=== PATIENT | female | born 1975 | race Caucasian/White ===

== ENCOUNTER 2017-08-21 09:22 | Day surgery (SDC) | payer OTHER ==
[~2017-08-21] VITALS: Ht 167.6 cm; Wt 90.7 kg
[~2017-08-21 09:22] MED LIST: INHALER; TUMS500 MG PO
[2017-08-21 09:45] VITALS: BP 124/68
[2017-08-21 10:27] LABS: HEMATOCRIT 42.8 % (36.0-46.0); MCH 30.8 PG (29.0-34.0); MCHC 33.4 G/DL (30.0-36.0); MCV 92.2 FL (83-99); MEAN PLAT.VOLUME 10.3 uM^3 (9.5-12.4); PLATELET COUNT 300 K/uL (156-360); RBC DIS.WIDTH-CV 13.2 % (11.8-14.6); RBC DIS.WIDTH-SD 44.1 % (39-53); RED BLOOD COUNT 4.64 M/uL (3.80-5.20); WHITE BLOOD COUNT 7.5 K/uL (4.1-10.2)
[2017-08-21 10:29] LABS: ANION GAP 8 MEQ/L (2-14); CHLORIDE 108 MEQ/L (99-109); GFR ESTIMATE (CALCULATED) > 59 mL/min/; GLUCOSE 87 mg/dL (70-99); POTASSIUM 4.3 MEQ/L (3.7-5.4); SAMPLE HEMOLYSIS CHECK 0; SAMPLE ICTERIC CHECK 0; SAMPLE LIPEMIA CHECK 0; SODIUM 142 MEQ/L (136-147); UREA NITROGEN (BUN) 11 mg/dL (9-23)
[2017-08-21] MEDS ORDERED: NORCO 5/3251 TABLET PO (13:41)
[2017-08-21 14:29] VITALS: BP 132/70
[2017-08-21 15:25] VITALS: BP 120/64
[2017-08-21 16:01] VITALS: BP 128/66
[2017-08-22 09:44] LABS: INTERNAL CONTROL VALID? YES
== END 2017-08-21 16:10 | disposition home or self-care (01) ==
LOC: SDC 09:22
PROVIDERS: Surgery
DX: K80.10 Calculus of gallbladder with chronic cholecystitis without obstruction (principal); E66.9 Obesity, unspecified; Z68.32 Body mass index [BMI] 32.0-32.9, adult; J45.909 Unspecified asthma, uncomplicated; E03.9 Hypothyroidism, unspecified
CPT/HCPCS: 74300; 80048; 84703; 85027; 88304; J0131; J1100; J1170; J1885; J2250; J2405; J2710; J3010; Q0175; S0020; S0074

== ENCOUNTER 2017-12-11 11:48 | Observation (INO) | payer OTHER ==
[~2017-12-11] VITALS: Ht 167.6 cm; Wt 92.6 kg
[~2017-12-11 11:48] MED LIST changes: +NORCO 5/3251 TABLET PO
[2017-12-11 12:06] LABS: BASOPHIL (%) 0.4 % (0-1); EOSINOPHIL (%) 0.9 % (0-5); EOSINOPHIL COUNT 0.1 K/uL (0-0.3); HEMATOCRIT 39.4 % (36.0-46.0); HEMOGLOBIN 13.4 G/DL (11.9-15.5); IMMATURE GRANULOCYTE (%) 0.3 % (0.0-0.7); LYMPHOCYTE (%) 22.5 % (15-42); LYMPHOCYTE COUNT 2.3 K/uL (1.0-2.8); MCH 30.2 PG (29.0-34.0); MCV 88.7 FL (83-99); MONOCYTE (%) 5.1 % (3-12); MONOCYTE COUNT 0.5 K/uL (0-0.8); NEUTROPHIL (%) 70.8 % (45-76); NEUTROPHIL COUNT 7.1 K/uL (1.8-6.4); PLATELET COUNT 266 K/uL (156-360); RBC DIS.WIDTH-CV 12.9 % (11.8-14.6); RBC DIS.WIDTH-SD 42.5 % (39-53); RED BLOOD COUNT 4.44 M/uL (3.80-5.20)
[2017-12-11 12:14] LABS: AMYLASE 35 IU/L (1-118); CHLORIDE 109 mEq/L (99-109); POTASSIUM 3.7 mEq/L (3.7-5.4); SODIUM 141 mEq/L (136-147)
[2017-12-11 12:16] LABS: GLUCOSE 108 mg/dL (70-99)
[2017-12-11 12:19] LABS: SERUM ETHYL ALCOHOL < 10 mg/dL
[2017-12-11 12:20] LABS: CREATININE 0.7 mg/dL (0.6-1.3); GFR ESTIMATE (CALCULATED) > 59 mL/min/
[2017-12-11 12:21] LABS: UREA NITROGEN (BUN) 11 mg/dL (9-23)
[2017-12-11 12:23] LABS: LIPASE 15 U/L (1.0-51.0)
[2017-12-11 12:28] LABS: QUANTITATIVE HCG < 4.0 MIU/ML
[2017-12-11] MEDS ORDERED: TYLENOL WITH C1 EACH PO (13:44)
[2017-12-11 18:09] LABS: HEMOGLOBIN 12.3 G/DL (11.9-15.5); MCH 31.1 PG (29.0-34.0); MCHC 35.1 G/DL (30.0-36.0); MCV 88.6 FL (83-99); PLATELET COUNT 219 K/uL (156-360); RBC DIS.WIDTH-CV 12.8 % (11.8-14.6); RBC DIS.WIDTH-SD 41.8 % (39-53); RED BLOOD COUNT 3.95 M/uL (3.80-5.20); WHITE BLOOD COUNT 13.4 K/uL (4.1-10.2)
[2017-12-11] MEDS ORDERED: ZOFRAN ODT4 MG PO (18:40)
[2017-12-11 23:38] VITALS: BP 133/64
[2017-12-11 23:45] VITALS: BP 133/64
[2017-12-12] VITALS (7 sets, daily range): BP systolic 115–146; BP diastolic 55–82
[2017-12-12 01:27] LABS: TROP-I INTERPRETATION NEGATIVE; TROPONIN-I < 0.01 ng/mL (0.0-0.30)
[2017-12-12 04:58] LABS: CHLORIDE 113 mEq/L (99-109); POTASSIUM 3.5 mEq/L (3.7-5.4); SODIUM 143 mEq/L (136-147)
[2017-12-12 05:00] LABS: GLUCOSE 82 mg/dL (70-99)
[2017-12-12 05:04] LABS: CREATININE 0.6 mg/dL (0.6-1.3); GFR ESTIMATE (CALCULATED) > 59 mL/min/
[2017-12-12 05:05] LABS: UREA NITROGEN (BUN) 6 mg/dL (9-23)
[2017-12-12 05:07] LABS: HEMATOCRIT 34.4 % (36.0-46.0); HEMOGLOBIN 11.9 G/DL (11.9-15.5); MCH 30.9 PG (29.0-34.0); MCHC 34.6 G/DL (30.0-36.0); MCV 89.4 FL (83-99); PLATELET COUNT 229 K/uL (156-360); RBC DIS.WIDTH-SD 42.2 % (39-53); RED BLOOD COUNT 3.85 M/uL (3.80-5.20); WHITE BLOOD COUNT 7.2 K/uL (4.1-10.2)
[2017-12-12 05:16] LABS: TROP-I INTERPRETATION NEGATIVE; TROPONIN-I < 0.01 ng/mL (0.0-0.30)
[2017-12-12 06:56] LABS: APPEARANCE CLEAR ((CLEAR)); BILIRUBIN NEGATIVE; BLOOD SMALL; COLOR YELLOW ((YELLOW)); GLUCOSE (STRIP) NEGATIVE; KETONES NEGATIVE; LEUKOCYTES NEGATIVE; NITRITE NEGATIVE; PROTEIN (STRIP) NEGATIVE; SPECIFIC GRAVITY 1.015 (1.000-1.030); UROBILINOGEN 0.2 MG/DL (0.2-1.0)
[2017-12-12 07:04] LABS: BACTERIA RARE /HPF; EPITHELIAL CELLS RARE /HPF; MUCUS TRACE /LPF; RED BLOOD CELLS 0-5 /HPF (0-5); UCUL ADDED? NO; WHITE BLOOD CELLS 0-5 /HPF (0-5)
[2017-12-13 00:09] VITALS: BP 111/70
[2017-12-13 03:44] VITALS: BP 112/69
[2017-12-13 05:45] LABS: BASOPHIL (%) 0.8 % (0-1); BASOPHIL COUNT 0.1 K/uL (0-0.1); EOSINOPHIL (%) 2.6 % (0-5); EOSINOPHIL COUNT 0.2 K/uL (0-0.3); HEMATOCRIT 35.5 % (36.0-46.0); HEMOGLOBIN 11.9 G/DL (11.9-15.5); IMMATURE GRANULOCYTE (%) 0.2 % (0.0-0.7); LYMPHOCYTE (%) 52.1 % (15-42); LYMPHOCYTE COUNT 3.2 K/uL (1.0-2.8); MCH 30.2 PG (29.0-34.0); MCHC 33.5 G/DL (30.0-36.0); MCV 90.1 FL (83-99); MONOCYTE (%) 7.7 % (3-12); MONOCYTE COUNT 0.5 K/uL (0-0.8); NEUTROPHIL (%) 36.6 % (45-76); NEUTROPHIL COUNT 2.2 K/uL (1.8-6.4); PLATELET COUNT 219 K/uL (156-360); RBC DIS.WIDTH-SD 43.1 % (39-53); RED BLOOD COUNT 3.94 M/uL (3.80-5.20); WHITE BLOOD COUNT 6.1 K/uL (4.1-10.2)
[2017-12-13 07:01] LABS: CHLORIDE 109 MEQ/L (99-109); CREATININE 0.6 MG/DL (0.6-1.3); GFR ESTIMATE (CALCULATED) > 59 mL/min/; GLUCOSE 70 mg/dL (70-99); POTASSIUM 3.6 MEQ/L (3.7-5.4); SODIUM 140 MEQ/L (136-147); UREA NITROGEN (BUN) 7 mg/dL (9-23)
[2017-12-13 08:09] VITALS: BP 113/71
[2017-12-13 11:58] VITALS: BP 113/60
== END 2017-12-13 14:38 | disposition home or self-care (01) ==
LOC: TRA 11:48 → EDOF 22:21 → 3EAST 22:21 → ENRESERV 22:27 → 3EAST 23:13
PROVIDERS: Emergency Medicine; Hospitalist; Physician Assistant
DX: S06.0X9A Concussion with loss of consciousness of unspecified duration, initial encounter (principal); V49.88XA Car occupant (driver) (passenger) injured in other specified transport accidents, initial encounter; R55 Syncope and collapse; S01.81XA Laceration without foreign body of other part of head, initial encounter; E87.6 Hypokalemia; Z90.49 Acquired absence of other specified parts of digestive tract
CPT/HCPCS: 70450; 71260; 72125; 72129; 72132; 74177; 80048; 81003; 82150; 82948; 83690; 84484; 84702; 85025; 85027; 86850; 86900; 86901; 93005; 99281; 99285; G0378; G0480; G8978 GP CJ; G8979 GP CH; G8980 CJ; G8987 GO CJ; G8988 CI; G8989 CJ; J1885; J2405; J7030; J7040; J7120